=== PATIENT | female | born 1960 | race African-American/Black ===

== ENCOUNTER 2017-10-29 19:33 | Emergency (ER) | payer MEDICAID ==
[~2017-10-29] VITALS: Ht 165.1 cm; Wt 50.0 kg
[2017-10-29 19:42] VITALS: BP 219/97
== END 2017-10-30 01:45 | disposition home or self-care (01) ==
LOC: ER 19:46
DX: S16.1XXA Strain of muscle, fascia and tendon at neck level, initial encounter (principal); M54.9 Dorsalgia, unspecified; R10.9 Unspecified abdominal pain; M25.561 Pain in right knee; H44.521 Atrophy of globe, right eye; I13.2 Hypertensive heart and chronic kidney disease with heart failure and with stage 5 chronic kidney disease, or end stage renal disease; N18.6 End stage renal disease; R93.0 Abnormal findings on diagnostic imaging of skull and head, not elsewhere classified; Z99.2 Dependence on renal dialysis; V49.88XA Car occupant (driver) (passenger) injured in other specified transport accidents, initial encounter; Y93.89 Activity, other specified; Y99.8 Other external cause status; Y92.410 Unspecified street and highway as the place of occurrence of the external cause
CPT/HCPCS: 70450; 72125; 74176; 99284; L0172